=== PATIENT | female | born 1975 | race Two or more races ===

== ENCOUNTER → 2021-12-30 | Outpatient (CLI) | payer OTHER ==
[2022-01-04 16:08] LABS: HPV 16 Negative (Negative); HPV 18 Negative (Negative); HPV OTHER HR TYPES Negative (Negative)
== END ==
LOC: LAB 09:43 → LAB SHORT 09:43
PROVIDERS: Family Medicine
DX: Z12.4 Encounter for screening for malignant neoplasm of cervix (principal)
CPT/HCPCS: 87624; G0145

== ENCOUNTER 2023-01-21 10:05 | Emergency (ER) | payer OTHER ==
[~2023-01-21] VITALS: Ht 162.6 cm; Wt 88.5 kg
[~2023-01-21 10:05] MED LIST: ESCI20 PO; EUTHYROX50 MCG PO; HYDPAM25 PO
[2023-01-21 11:10] LABS: BASOPHILS ABSOLUTE AUTO 0.04 K/mm3 (0.00-0.23); BASOPHILS PERCENT AUTO 0 % (0-2); EOSINOPHILS ABSOLUTE AUTO 0.23 K/mm3 (0.00-0.68); EOSINOPHILS PERCENT AUTO 2 % (0-6); Hematocrit 40.1 % (33.0-51.0); Hemoglobin 13.5 g/dL (11.5-16.0); IMMATURE GRAN ABSOLUTE AUTO 0.06 K/mm3 (0.00-0.10); IMMATURE GRAN PERCENT AUTO 0 % (0-1); LYMPHOCYTES ABSOLUTE AUTO 1.85 K/mm3 (0.84-5.20); LYMPHOCYTES PERCENT AUTO 14 % (21-46); MONOCYTES ABSOLUTE AUTO 1.04 K/mm3 (0.16-1.47); MONOCYTES PERCENT AUTO 8 % (4-13); Mean Corpuscular HGB 28.7 pg (26.0-34.0); Mean Corpuscular HGB Conc 33.7 g/dL (31.5-36.5); Mean Corpuscular Volume 85 fL (80-100); Mean Platelet Volume 10.3 fL (9.1-12.4); NEUTROPHILS PERCENT AUTO 76 % (41-73); Platelet Count 358 K/mm3 (150-400); RDW Standard Deviation 39.8 fL (35.1-46.3); Red Blood Cell Count 4.71 M/mm3 (3.80-5.20); White Blood Cell Count 13.52 K/mm3 (4.00-11.30)
[2023-01-21 11:21] LABS: Albumin, Blood 3.4 g/dL (3.4-5.0); Albumin/Globulin Ratio 0.9 (0.8-1.8); Bilirubin, Total 0.7 mg/dL (0.1-1.0); Bun/Creatinine Ratio 17.2 (12.0-20.0); Creatinine, Blood 0.64 mg/dL (0.40-1.00); Globulin, Blood 3.9 g/dL (2.2-4.0); Potassium, Blood 4.3 mmol/L (3.5-5.5); Total Protein, Blood 7.3 g/dL (6.4-8.2)
[2023-01-21 12:04] LABS: Bilirubin, Urine Neg (Neg); Blood, Urine Neg (Neg); Glucose Qualitative, Urine Neg (Neg); Ketones, Urine 1+ (Neg); Leukocyte Esterase, Urine 1+ (Neg); Nitrite, Urine Neg (Neg); Protein, Urine Neg (Neg); Source, Urine Clean Catch; Specific Gravity, Urine 1.005 (1.003-1.022); Urobilinogen, Urine NORM (Normal); pH, Urine 6.5 (5.0-8.0)
[2023-01-21 12:13] LABS: Appearance, Urine Clear (Clear); Color, Urine Yellow (P-Yellow)
[2023-01-21 12:14] LABS: Bacteria Few /hpf; Red Blood Cells, Urine 0-2 /hpf (0-2); Squamous Epithelial Cells Few /hpf (Few)
[2023-01-21 15:57] VITALS: BP 118/70
[2023-01-21] MEDS ORDERED: AMOCLA875 PO (15:58)
[2023-01-21] MEDS ORDERED: Ibuprofen600 MG PO (15:58)
== END 2023-01-21 17:30 | disposition home or self-care (01) ==
LOC: ER 10:05
PROVIDERS: Emergency Medicine
DX: K57.32 Diverticulitis of large intestine without perforation or abscess without bleeding (principal); E11.9 Type 2 diabetes mellitus without complications; Z79.890 Hormone replacement therapy; Z79.899 Other long term (current) drug therapy; E03.9 Hypothyroidism, unspecified
CPT/HCPCS: 74177; 80053; 81001; 81025; 83690; 85025; 87086; 87147; 96374-59; 96375; 99284-25; A9270; J0696; J1885; J2270; J2405; J7030; Q9967

== ENCOUNTER 2023-01-25 16:03 | Inpatient (IN) | payer OTHER ==
[~2023-01-25] VITALS: Ht 160 cm; Wt 91.9 kg
[~2023-01-25 16:03] MED LIST changes: +AMOCLA875 PO; +Ibuprofen600 MG PO
[2023-01-25 16:31] LABS: BASOPHILS ABSOLUTE AUTO 0.04 K/mm3 (0.00-0.23); BASOPHILS PERCENT AUTO 0 % (0-2); EOSINOPHILS ABSOLUTE AUTO 0.15 K/mm3 (0.00-0.68); EOSINOPHILS PERCENT AUTO 1 % (0-6); Hematocrit 40.4 % (33.0-51.0); IMMATURE GRAN ABSOLUTE AUTO 0.05 K/mm3 (0.00-0.10); IMMATURE GRAN PERCENT AUTO 1 % (0-1); LYMPHOCYTES ABSOLUTE AUTO 2.53 K/mm3 (0.84-5.20); LYMPHOCYTES PERCENT AUTO 24 % (21-46); MONOCYTES ABSOLUTE AUTO 1.01 K/mm3 (0.16-1.47); MONOCYTES PERCENT AUTO 10 % (4-13); Mean Corpuscular HGB 28.3 pg (26.0-34.0); Mean Corpuscular HGB Conc 34.7 g/dL (31.5-36.5); Mean Corpuscular Volume 82 fL (80-100); Mean Platelet Volume 9.8 fL (9.1-12.4); NEUTROPHILS ABSOLUTE AUTO 6.66 K/mm3 (1.96-9.15); NEUTROPHILS PERCENT AUTO 64 % (41-73); Platelet Count 446 K/mm3 (150-400); RDW Coefficient Variation 12.4 % (11.7-14.2); RDW Standard Deviation 36.8 fL (35.1-46.3); Red Blood Cell Count 4.94 M/mm3 (3.80-5.20); White Blood Cell Count 10.44 K/mm3 (4.00-11.30)
[2023-01-25 16:55] LABS: Bilirubin, Total 0.4 mg/dL (0.1-1.0); Bun/Creatinine Ratio 12.1 (12.0-20.0); Calcium, Blood 9.7 mg/dL (8.5-10.1); Creatinine, Blood 0.58 mg/dL (0.40-1.00); Globulin, Blood 4.2 g/dL (2.2-4.0); Potassium, Blood 3.2 mmol/L (3.5-5.5); Total Protein, Blood 8.2 g/dL (6.4-8.2)
[2023-01-25 18:19] LABS: Magnesium, Blood 2.1 mg/dL (1.6-2.4); Phosphorus, Blood 1.8 mg/dL (2.5-4.9)
[2023-01-25] MEDS ORDERED: BUSPIRONE HCL7.5 M6 PO (20:46)
--- NOTE | 2023-01-25 20:54 | NUR ---
PT CHART REVIEWED FOR ADMIT
[2023-01-25 21:30] VITALS: BP 125/72
[2023-01-26 02:45] VITALS: BP 105/62
--- NOTE | 2023-01-26 05:00 | NUR ---
SHIFT SUMMARY/ADMISSION NOTE PATIENT ARRIVED TO UNIT FROM ED AT 20:40. A/0x4, BRIGHT AFFECT, SPOUSE AND CHILD AT BEDSIDE. ORIENTED PATIENT TO UNIT, ROOM AMD CALL LIGHT USE. PATIENT STATES NOT BEING ABLE TO EAT ANYTHING SOLID x6 DAYS DUE TO NAUSEA AND WORSENING ABD PAIN. DENIES CURRENT PAIN/DISCOMFORT NOR NAUSEA. VSS, SPO2 100% ON RA. INDEPENDANT IN ROOM, REMINDED TO CALL FOR ASSISTANCE WHEN NEEDING TO GET UP DUE TO IV INFUSION, PIV TO LEFT AC, NS@150mL/HR. AT 03:30 PATIENT C/O LOWER ABD PAIN AND NAUSEA, RECEIVED PRN IBUPROFEN AND ZOFRAN, TOLERATED WELL. PLACED PATIENT's HOME PILL-MINDER IN LOCKED DRAWER, VERBALIZED UNDERSTANDING THAT HOSPITAL WILL PROVIDE AND MANAGE ALL MEDICATIONS WHILE ADMITTED IN-PATIENT. NO ACUTE CHANGES NOTED OVERNIGHT. BED IN LOW POSITION, CALL LIGHT WITHIN REACH.
[2023-01-26 05:31] LABS: Hematocrit 34.4 % (33.0-51.0); Hemoglobin 11.4 g/dL (11.5-16.0); Mean Corpuscular HGB 28.1 pg (26.0-34.0); Mean Corpuscular HGB Conc 33.1 g/dL (31.5-36.5); Mean Corpuscular Volume 85 fL (80-100); Platelet Count 347 K/mm3 (150-400); RDW Coefficient Variation 12.6 % (11.7-14.2); RDW Standard Deviation 38.8 fL (35.1-46.3); Red Blood Cell Count 4.06 M/mm3 (3.80-5.20); White Blood Cell Count 6.75 K/mm3 (4.00-11.30)
[2023-01-26 06:27] LABS: Magnesium, Blood 1.7 mg/dL (1.6-2.4)
[2023-01-26 06:30] LABS: Bun/Creatinine Ratio 5.9 (12.0-20.0); Creatinine, Blood 0.67 mg/dL (0.40-1.00); Potassium, Blood 3.6 mmol/L (3.5-5.5)
[2023-01-26 06:31] LABS: Calcium, Blood 7.7 mg/dL (8.5-10.1)
[2023-01-26 07:29] VITALS: BP 104/56
--- NOTE | 2023-01-26 15:34 | NUR ---
Pt. is awake in bed and welcomes my visit. Pt. has a guest but verbalizes a desire for me to stay. Facilitate a life review. 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 Consider matters of anderson and belief. Pt. has a pleasant disposition and displays evidence of great hope. Prayed with pt. and her guest. Pt. verbalized gratitude for the spiritual care visit.
[2023-01-26 16:00] VITALS: BP 112/64
--- NOTE | 2023-01-26 19:27 | NUR ---
SHIFT SUMMARY: PT A/O X 4, IND IN ROOM. PLEASANT AND COOPERATIVE. PT DEVELOPED A MIGRAINE TODAY. MORPHINE GIVEN WHICH RESOLVED KOLB BUT PT EXPERIENCED CHEST TIGHTNESS FOR A SECOND AND DIZZINESS AFTER GIVEN. PT HAD NO FURTHER COMPLAINTS OF CHEST TIGHTNESS. VSS. PT DOES CONTINUE TO HAVE ABD PAIN TO LL ABD. PT ABD PAIN MANAGED WITH TORADOL. PT HAD EPISODE OF LOOSE STOOL TODAY.
[2023-01-26 20:38] VITALS: BP 110/77
[2023-01-27] VITALS (7 sets, daily range): BP systolic 115–133; BP diastolic 61–90
--- NOTE | 2023-01-27 04:28 | NUR ---
SHIFT SUMMARY PATIENT A/Ox4, DENIES ABD PAIN, STATES HAD JUST RECEIVED PAIN MEDICATION PRIOR TO SHIFT CHANGE. APPEARES CALM/RELAXED, SPOUSE AND CHILD AT BEDSIDE. AT HS PATIENT C/O HEADACHE, DECLINED ANY CURRENT PRNs, REQUESTED EXCEDRIN, ONCALL PROVIDER NOTIFIED AND RECEIVED ONE TIME ORDER FOR 1 TAB, TOLERATED WELL, RELIEF STATED. PATIENT STATED THAT SHE HAD A BAD REACTION TO IVP MORPHINE EARLIER AND NEVER WANTS TO TAKE IT AGAIN. EXPLAINED THAT SHE FELT HER CHEST TIGHTEN AND HAD A HARD TIME BREATHING FOR A FEW MINUTES, GOT LIGHTHEADED AND THOUGHT SHE WOULD PASS OUT BUT DID NOT. STATED THAT SHE FEELS HER ANXIETY HAS WORSENED RECENTLY, HAS A LOT GOING ON, DECLINED TO ELABORATE. DOES NOT WANT TO CUT BACK ON CITALOPRAM DOSE, HAD BEEN ON 10MG DAILY PRIOR TO ADMISSION. WILL PASS ON TO DAY SHIFT TO DISCUSS WITH TREATMENT TEAM. PER ONCALL PROVIDER, OK TO DISCONTINUE MORPHINE AND UPDATE ALLERGY LIST. PATIENT APPEARES TO BE ASLEEP IN BED, RESTING COMFORTABLY AT THIS TIME IN NO ACUTE DISTRESS. BED LOCKED AND IN LOW POSITION, CALL LIGHT WITHIN REACH.
--- NOTE | 2023-01-27 16:44 | NUR ---
SHIFT SUMMARY Pt remains A&Ox3 this shift. Motrin effective for abd pain. VSS, resp even nonlabored on RA. Ambulating independently to bathroom. Voiding without difficulty. NPO except ice chips. Plan of care reviewed. No further needs id or verbalized at this time.
[2023-01-28 02:58] VITALS: BP 102/59
--- NOTE | 2023-01-28 04:07 | NUR ---
MAKES NEEDS KNOWN, ALERT AND ORIENTED TO ALL, USES CALL LIGHT, INDEPEDENT IN ROOM AND HALLS, TYSHAWN, CESAR Q6H, COMPLAINED OF PAIN ONCE AND WAS MEDICATED PER EMR AT 0140. DENIED NAUSEA AND VOMITING, HYPOTENSIVE THIS AM 102/59, SATS 99% ON RA. NO ACUTE CHANGES THROUGH PM SHIFT, WILL RELAY TO PM RN
[2023-01-28 07:04] VITALS: BP 120/70
--- NOTE | 2023-01-28 12:31 | NUR ---
PT TOLERATING CLD LAST PM AND THIS AM. FULL LIQUID DIET ORDERED PER DR WHELAN
[2023-01-28 14:53] VITALS: BP 129/63
--- NOTE | 2023-01-28 16:52 | NUR ---
SHIFT SUMMARY: Pt remains A&O x3 this shift. VSS, denies pain. Tolerating full liquid diet. IV antibx as ordered given. Ambulating in [place] independently.
[2023-01-28 19:44] VITALS: BP 118/69
[2023-01-29] MEDS ORDERED: ESCI10 PO (02:31)
[2023-01-29 04:26] VITALS: BP 110/59
--- NOTE | 2023-01-29 05:43 | NUR ---
ALERT AND ORIENTED TO ALL, MAKES NEEDS KNOWN, INDEPENDENT IN ROOM, DENIES CP OR NV, LS CLEAR, 100% SATS ON RA. POSSIBLE DISCHARGE TODAY WITH HOME PO ANTIBIOTICS. PATIENT REPORTS MINIMAL DISCOMFORT FROM FULL LIQUIDS AND BM MORE REGULAR. WILL RELAY TO PM RN, CALL LIGHT WITH IN REACH
[2023-01-29 07:09] VITALS: BP 120/63
[2023-01-29 12:41] LABS: BASOPHILS ABSOLUTE AUTO 0.02 K/mm3 (0.00-0.23); BASOPHILS PERCENT AUTO 0 % (0-2); EOSINOPHILS ABSOLUTE AUTO 0.16 K/mm3 (0.00-0.68); EOSINOPHILS PERCENT AUTO 3 % (0-6); Hemoglobin 13.1 g/dL (11.5-16.0); IMMATURE GRAN ABSOLUTE AUTO 0.02 K/mm3 (0.00-0.10); IMMATURE GRAN PERCENT AUTO 0 % (0-1); LYMPHOCYTES ABSOLUTE AUTO 1.92 K/mm3 (0.84-5.20); LYMPHOCYTES PERCENT AUTO 31 % (21-46); MONOCYTES ABSOLUTE AUTO 0.81 K/mm3 (0.16-1.47); MONOCYTES PERCENT AUTO 13 % (4-13); Mean Corpuscular HGB 28.2 pg (26.0-34.0); Mean Corpuscular HGB Conc 33.6 g/dL (31.5-36.5); Mean Corpuscular Volume 84 fL (80-100); Mean Platelet Volume 9.8 fL (9.1-12.4); NEUTROPHILS ABSOLUTE AUTO 3.35 K/mm3 (1.96-9.15); NEUTROPHILS PERCENT AUTO 53 % (41-73); Platelet Count 401 K/mm3 (150-400); RDW Coefficient Variation 12.8 % (11.7-14.2); RDW Standard Deviation 38.5 fL (35.1-46.3); Red Blood Cell Count 4.65 M/mm3 (3.80-5.20); White Blood Cell Count 6.28 K/mm3 (4.00-11.30)
[2023-01-29 12:54] LABS: Albumin, Blood 3.3 g/dL (3.4-5.0); Albumin/Globulin Ratio 0.9 (0.8-1.8); Bilirubin, Total 0.2 mg/dL (0.1-1.0); Bun/Creatinine Ratio 7.6 (12.0-20.0); Calcium, Blood 9.4 mg/dL (8.5-10.1); Creatinine, Blood 0.66 mg/dL (0.40-1.00); Globulin, Blood 3.6 g/dL (2.2-4.0); Potassium, Blood 3.4 mmol/L (3.5-5.5); Total Protein, Blood 6.9 g/dL (6.4-8.2)
[2023-01-29] MEDS ORDERED: CIPR500 PO (15:22)
[2023-01-29] MEDS ORDERED: METR500 PO (15:22)
[2023-01-29 15:44] VITALS: BP 106/70
--- NOTE | 2023-01-29 16:41 | NUR ---
DISCHARGE PT DISCHARGED HOME WITH FAMILY. DISCHARGE INSTRUCTIONS DISCUSSED WITH PT NO QUESTIONS AT THIS TIME. ALERT AND ORIENTED X4 AND INDEPENDENT IN THE ROOM. INSTRUCTED PT TO RETURN TO THE ER IF PAIN INCREASES OR IF FEVER DEVELOPES.
== END 2023-01-29 16:38 | disposition home or self-care (01) | DRG 392 ==
LOC: ER 16:03 → MEDS 16:04
PROVIDERS: Emergency Medicine; Family Medicine; Nurse Practitioner Acute Care; Physician Assistant; ADMIT Internal Medicine
DX: K57.92 Diverticulitis of intestine, part unspecified, without perforation or abscess without bleeding (principal); E87.1 Hypo-osmolality and hyponatremia; R73.03 Prediabetes; F41.9 Anxiety disorder, unspecified; E86.0 Dehydration; E87.6 Hypokalemia; E83.39 Other disorders of phosphorus metabolism; E86.1 Hypovolemia; G43.909 Migraine, unspecified, not intractable, without status migrainosus; E03.8 Other specified hypothyroidism; Z79.899 Other long term (current) drug therapy; Z79.811 Long term (current) use of aromatase inhibitors; Z79.2 Long term (current) use of antibiotics; Z90.49 Acquired absence of other specified parts of digestive tract; Z98.890 Other specified postprocedural states
CPT/HCPCS: 36415; 71046; 74177; 80048; 80053; 83690; 83735; 84100; 84484; 85025; 85027; 96361; 96365-59; 96366; 96367; 96375; 96376; 99285-25; A9270; G0378; J0696; J1885; J2270; J2405; J2543; J3480; J7030; J7040; Q9967

== ENCOUNTER 2023-02-02 13:33 | Emergency (ER) | payer OTHER ==
[~2023-02-02] VITALS: Ht 162.6 cm; Wt 86.2 kg
[~2023-02-02 13:33] MED LIST changes: +BUSPIRONE HCL7.5 M6 PO; +CIPR500 PO; +ESCI10 PO; +METR500 PO
[2023-02-02 15:01] LABS: BASOPHILS ABSOLUTE AUTO 0.04 K/mm3 (0.00-0.23); BASOPHILS PERCENT AUTO 1 % (0-2); EOSINOPHILS PERCENT AUTO 1 % (0-6); Hematocrit 42.6 % (33.0-51.0); Hemoglobin 14.5 g/dL (11.5-16.0); IMMATURE GRAN ABSOLUTE AUTO 0.02 K/mm3 (0.00-0.10); IMMATURE GRAN PERCENT AUTO 0 % (0-1); LYMPHOCYTES PERCENT AUTO 20 % (21-46); MONOCYTES ABSOLUTE AUTO 0.64 K/mm3 (0.16-1.47); MONOCYTES PERCENT AUTO 7 % (4-13); Mean Corpuscular HGB 28.5 pg (26.0-34.0); Mean Corpuscular Volume 84 fL (80-100); Mean Platelet Volume 9.9 fL (9.1-12.4); NEUTROPHILS PERCENT AUTO 71 % (41-73); Platelet Count 445 K/mm3 (150-400); RDW Coefficient Variation 12.8 % (11.7-14.2); RDW Standard Deviation 39.1 fL (35.1-46.3); Red Blood Cell Count 5.09 M/mm3 (3.80-5.20)
[2023-02-02 15:25] LABS: Albumin, Blood 3.9 g/dL (3.4-5.0); Bilirubin, Total 0.4 mg/dL (0.1-1.0); Bun/Creatinine Ratio 11.9 (12.0-20.0); Calcium, Blood 9.8 mg/dL (8.5-10.1); Creatinine, Blood 0.68 mg/dL (0.40-1.00); Potassium, Blood 3.8 mmol/L (3.5-5.5); Total Protein, Blood 7.9 g/dL (6.4-8.2)
[2023-02-02 17:45] LABS: Source, Urine Clean Catch
[2023-02-02 17:50] LABS: Appearance, Urine Clear (Clear); Bilirubin, Urine Neg (Neg); Blood, Urine Neg (Neg); Color, Urine Yellow (P-Yellow); Glucose Qualitative, Urine Neg (Neg); Ketones, Urine Neg (Neg); Leukocyte Esterase, Urine Neg (Neg); Nitrite, Urine Neg (Neg); Protein, Urine Neg (Neg); Urobilinogen, Urine NORM (Normal)
[2023-02-02] MEDS ORDERED: TRAM50 PO (18:32)
[2023-02-02 19:23] VITALS: BP 121/68
== END 2023-02-02 19:22 | disposition home or self-care (01) ==
LOC: ER 13:33
PROVIDERS: Emergency Medicine; Physician Assistant
DX: K57.32 Diverticulitis of large intestine without perforation or abscess without bleeding (principal); E11.9 Type 2 diabetes mellitus without complications; E03.9 Hypothyroidism, unspecified; Z88.5 Allergy status to narcotic agent; Z79.890 Hormone replacement therapy; Z79.1 Long term (current) use of non-steroidal anti-inflammatories (NSAID); Z79.899 Other long term (current) drug therapy
CPT/HCPCS: 74177; 80053; 81003; 83690; 85025; 96374; 96375; 99284-25; A9270; J1885; J2405; Q9967

== ENCOUNTER → 2023-03-14 | Outpatient (CLI) | payer OTHER ==
[~2023-03-14] MED LIST changes: +TRAM50 PO
[2023-03-15 19:49] LABS: Campylobacter Sp Not Detected (NOT DETECT)
[2023-03-15 19:50] LABS: Adenovirus F 40/41 Not Detected (NOT DETECT); Astrovirus Not Detected (NOT DETECT); Cryptosporidium Not Detected (NOT DETECT); Cyclospora Cayetanensis Not Detected (NOT DETECT); E. Coli O157 Not Detected (NOT DETECT); Entamoeba Histolytica Not Detected (NOT DETECT); Enteroaggregative E. coli-EAEC Not Detected (NOT DETECT); Enteropathogenic E. coli-EPEC Not Detected (NOT DETECT); Enterotoxigenic E. coli-ETEC Not Detected (NOT DETECT); Giardia Lamblia Not Detected (NOT DETECT); Norovirus GI/GII Not Detected (NOT DETECT); Plesiomonas Shigelloides Not Detected (NOT DETECT); Rotavirus A Not Detected (NOT DETECT); Salmonella Sp Not Detected (NOT DETECT); Sapovirus Not Detected (NOT DETECT); Shiga Toxin-prod E. coli-STEC Not Detected (NOT DETECT); Shigella/Enteroin E. coli-EIEC Not Detected (NOT DETECT); Vibrio Cholerae Not Detected (NOT DETECT); Vibrio Sp Not Detected (NOT DETECT); Yersinia Enterocolitica Not Detected (NOT DETECT)
== END | disposition home or self-care (01) ==
LOC: LAB SHORT 23:43 → LAB 23:43
PROVIDERS: Family Medicine
DX: R19.7 Diarrhea, unspecified (principal)
CPT/HCPCS: 87324; 87507

== ENCOUNTER → 2023-05-01 | Outpatient (CLI) | payer OTHER | END | disposition home or self-care (01) | LOC: LAB SHORT 11:46 → LAB 11:46 | DX: R53.83 Other fatigue (principal); R10.32 Left lower quadrant pain; Z87.19 Personal history of other diseases of the digestive system | CPT/HCPCS: 83631 ==

== ENCOUNTER → 2023-10-14 | Outpatient (CLI) | payer OTHER | END | disposition home or self-care (01) | LOC: LAB SHORT 15:46 → LAB 15:46 | DX: E86.0 Dehydration (principal) ==

== ENCOUNTER → 2025-05-12 | Outpatient (CLI) | payer OTHER ==
[~2025-05-12] MED LIST changes: +Bentyl20 MG PO; +HYDHCL25 PO; +LEVO750 PO
== END | disposition home or self-care (01) ==
LOC: LAB SHORT 15:35 → LAB 15:35
DX: R82.81 Pyuria (principal)
CPT/HCPCS: 87086

== ENCOUNTER → 2025-05-12 | Outpatient (CLI) | payer OTHER ==
[2025-05-12 14:15] LABS: BASOPHILS ABSOLUTE AUTO 0.02 K/mm3 (0.00-0.23); BASOPHILS PERCENT AUTO 0 % (0-2); EOSINOPHILS ABSOLUTE AUTO 0.12 K/mm3 (0.00-0.68); EOSINOPHILS PERCENT AUTO 2 % (0-6); Hematocrit 41.7 % (33.0-51.0); Hemoglobin 13.9 g/dL (11.5-16.0); IMMATURE GRAN ABSOLUTE AUTO 0.01 K/mm3 (0.00-0.10); IMMATURE GRAN PERCENT AUTO 0 % (0-1); LYMPHOCYTES ABSOLUTE AUTO 1.44 K/mm3 (0.84-5.20); LYMPHOCYTES PERCENT AUTO 23 % (21-46); MONOCYTES ABSOLUTE AUTO 0.50 K/mm3 (0.16-1.47); MONOCYTES PERCENT AUTO 8 % (4-13); Mean Corpuscular HGB Conc 33.3 g/dL (31.5-36.5); Mean Corpuscular Volume 87 fL (80-100); NEUTROPHILS ABSOLUTE AUTO 4.11 K/mm3 (1.96-9.15); NEUTROPHILS PERCENT AUTO 66 % (41-73); NRBC ABSOLUTE 0.00 K/mm3 (0.00-0.02); NRBC Auto 0.0 /100 WBC (0.0-0.2); Platelet Count 332 K/mm3 (150-400); RDW Coefficient Variation 13.2 % (11.7-14.2); RDW Standard Deviation 41.3 fL (35.1-46.3)
[2025-05-12 14:27] LABS: Alanine Aminotransfer (ALT/SGP 19.0 U/L (12-78); Albumin, Blood 3.6 g/dL (3.4-5.0); Albumin/Globulin Ratio 0.9 (0.8-1.8); Anion Gap 11.0 mmol/L (3-11); Aspartate Aminotrans (AST/SGOT 15.0 U/L (12-37); Bilirubin, Total 0.5 mg/dL (0.1-1.0); Blood Urea Nitrogen 9.0 mg/dL (8-24); CO2, Blood 28.0 mmol/L (21-32); Calcium, Blood 9.2 mg/dL (8.5-10.1); Chloride, Blood 101.0 mmol/L (98-108); Creatinine, Blood 0.76 mg/dL (0.40-1.00); Globulin, Blood 3.9 g/dL (2.2-4.0); Glucose, Blood 89.0 mg/dL (70-99); Potassium, Blood 4.1 mmol/L (3.5-5.5); Sodium, Blood 136.0 mmol/L (136-145); Total Protein, Blood 7.5 g/dL (6.4-8.2)
== END | disposition home or self-care (01) ==
LOC: LAB SHORT 14:12 → LAB 14:12
PROVIDERS: Physician Assistant
DX: R19.7 Diarrhea, unspecified (principal)
CPT/HCPCS: 80053; 83690; 85025